=== PATIENT | male | born 1955 | race Caucasian/White ===

== ENCOUNTER 2023-05-13 14:01 | Emergency (ER) | payer SELFPAY ==
[2023-05-13] VITALS (23 sets, daily range): BP systolic 168–250; BP diastolic 87–128; PULSE 59–77; RESP 12–21; O2SAT 94–98
--- NOTE | 2023-05-13 14:15 | RT.EKG_ITS ---
APPROVED REPORT Exam: Resting ECG Reason for Exam: hypertension Patient Location: E HR:60 bpm ECG Measurements Heart Rate 60 AXIS FL 173 P 44 QRSd 94 QRS -7 QT 422 T -22 QTc 423 Conclusion Sinus rhythm 60 normal axis no stemi
[2023-05-13] MEDS: amLODIPine 5 MG TAB PO (14:31)
[2023-05-13] MEDS: hydroCHLOROthiazide 25 MG TAB PO (14:32)
[2023-05-13 14:56] LABS: Abs Immature Grans 0.03 10^3/uL (0.0-0.06); Absolute Basophil Count 0.07 10^3/uL (0.0-0.2); Absolute Eosinophil Count 0.46 10^3/uL (0.0-0.7); Absolute Lymphocyte Count 2.15 10^3/uL (1.2-3.4); Absolute Monocyte Count 0.84 10^3/uL (0.1-0.8); Absolute Neutrophil Count 5.96 10^3/uL (1.2-6.7); Basophils % 0.7; Eosinophils % 4.8; HCT 44.3 % (40.0-50.0); HGB 15.2 g/dL (13.5-17.5); Immature Grans % 0.3; Lymphocytes % 22.6; MCHC 34.3 % (32.0-36.0); MCV 90 fL (80-95); MPV 11.5 fL (8.0-11.0); Monocytes % 8.8; Neutrophils % 62.8; Platelet Count 198 10^3/uL (130-400); RBC 4.91 10^6/uL (4.36-5.78); RDW 13.2 % (11.8-14.1); RDW-SD 43.8 fL; WBC 9.51 10^3/uL (4.4-10.8)
[2023-05-13 15:20] LABS: ALT 6 U/L (16-63); AST 20 U/L (15-37); Albumin 4.1 g/dL (3.4-5.0); Alkaline Phosphatase 103 U/L (46-116); Anion Gap 8.5 mmol/L (3-11); BUN 19 mg/dL (7-18); Bilirubin, Total 0.6 mg/dL (0.2-1.0); CO2 31.5 mmol/L (21.0-32.0); CREATININE 1.1 mg/dL (0.70-1.30); Calcium 8.6 mg/dL (8.5-10.1); Chloride 102 mmol/L (98-107); Estimated GFR 72.67 (mL/min/1.73m2); Glucose 89 mg/dL (74-106); Magnesium 2.2 mg/dL (1.8-2.4); NT-proBNP 735 pg/mL (<300); Potassium 3.4 mmol/L (3.5-5.1); Sodium 142 mmol/L (136-145); Total Protein 8.1 g/dL (6.4-8.2); Troponin I < 50 ng/L (< or =60)
[2023-05-13] MEDS: hydrALAZINE 20 MG/ML VIAL 10 MG IVP (15:54)
[2023-05-13 15:59] LABS: Bilirubin Negative (Negative); Blood Negative (Negative); Clarity Clear (Clear); Glucose Negative (Negative); Ketones Negative (Negative); Leukocyte Esterase Negative (Negative); Nitrite Negative (Negative); Specific Gravity 1.015 (1.005-1.025); Urobilinogen 0.2 mg/dL (Up to 0.2); pH 7.5 (5-8)
--- NOTE | 2023-05-13 16:00 | DI.RAD_ITS ---
Exam(s) XR PORTABLE CHEST AP EXAM: XR PORTABLE CHEST AP CLINICAL HISTORY: htn TECHNIQUE: 2D digital imaging was performed. COMPARISON: No exams were available for comparison FINDINGS: LUNGS: Clear. No pleural abnormality seen. HEART: Enlarged. AORTA: Tortuous. BONES: Unremarkable for age. Soft tissues: Unremarkable. IMPRESSION: No acute findings. DATA REPOSITORY: RADIATION DOSE DELIVERED:
--- NOTE | 2023-05-13 16:00 | W.ED.GENAD ---
Discharge Plan Disposition Patient Disposition: Home Discharge Details Clinical Impression: HTN (hypertension) Primary Care Provider: Cecille Kelsey ED Provider: Walker Mccann Home Meds and New Rx's Prescriptions: New irbesartan-hydrochlorothiazide 300-12.5 mg tablet 1 tab PO DAILY Qty: 30 0RF amlodipine [Norvasc] 5 mg tablet 5 mg PO DAILY Qty: 30 0RF Discontinued irbesartan 300 mg tablet 300 mg PO DAILY Discharge Instructions Instructions: Hypertension (ED) Additional Instructions: Start the new medications provided. Updated prescriptions sent to the pharmacy. You can start these tomorrow. Please continue to keep blood pressure log. Schedule follow-up with your primary care doctor in the next 1 to 2 weeks for reevaluation and follow-up pressure. Return to the emergency department if you develop chest pain, shortness of breath, severe headache. Iniciar los nuevos medicamentos proporcionados. Recetas actualizadas enviadas a la farmacia. Puedes empezar con esto ma?mari. Contin?e manteniendo un registro de la presi?n arterial. Programe un seguimiento con patino m?dico de atenci?n primaria en las pr?ximas 1 a 2 semanas para valerie reevaluaci?n y presi?n de seguimiento. Regrese al departamento de emergencias si presenta dolor en el pecho, dificultad para respirar o dolor de servando intenso. HPI General Date/Time Provider Initiated Documentation: 05/13/23 14:02. Limitations to Documentation: language barrier. Information obtained by: patient. HPI Narrative: 67-year-old gentleman with past medical history of hypertension presents for evaluation of elevated blood pressure. He recently saw PCP and was represcribed his blood pressure medicine. Since that time he has been keeping a blood pressure log. He denies any chest pain or shortness of breath. He reports that he sometimes feels some headache in the back of his head when he lays down. He does not have a headache right now. Denies any chest pain. Patient history obtained using glass mould cleaner line Related Data Home Medications Medication Instructions Recorded Confirmed amlodipine 5 mg tablet (Norvasc) 5 mg PO DAILY #30 tabs 05/13/23 irbesartan 300 1 tab PO DAILY #30 tabs 05/13/23 mg-hydrochlorothiazide 12.5 mg tablet Previous Rx's Medication Instructions Recorded amlodipine 5 mg tablet (Norvasc) 5 mg PO DAILY #30 tabs 05/13/23 irbesartan 300 1 tab PO DAILY #30 tabs 05/13/23 mg-hydrochlorothiazide 12.5 mg tablet Allergies Allergy/AdvReac Type Severity Reaction Status Date / Time No Known Allergies Allergy Verified 05/13/23 14:14 General Stated Complaint: GenMedical CYNDI: 3 Exam Narrative Exam Narrative: Review of Systems: All systems reviewed & are unremarkable except as noted in HPI and below Well-developed, no acute distress NCAT PERRL, normal conjunctiva RRR, no murmur Unlabored respiratory effort, no crackles, clear bilaterally Nondistended abdomen soft nontender Extremities w/o deformity, no cyanosis, no edema No rashes or lesions. no focal neurologic deficits Appropriate mood and affect Course Vital Signs Vital signs: Vital Signs Pulse 64 05/13/23 14:07 Respiratory Rate 18 05/13/23 14:07 Blood Pressure 220/104 H 05/13/23 14:07 Pulse Oximetry 98 05/13/23 14:07 Pulse 68 05/13/23 14:27 Pulse 72 05/13/23 14:30 Respiratory Rate 18 05/13/23 14:32 Respiratory Effort Normal, Non-Labored 05/13/23 14:32 Respiratory Depth Normal 05/13/23 14:32 Respiratory Pattern Normal 05/13/23 14:32 Blood Pressure 221/120 H 05/13/23 14:27 Blood Pressure Mean 149 05/13/23 14:27 Blood Pressure Position Sitting 05/13/23 14:07 Pulse Oximetry 98 05/13/23 14:30 Oxygen Delivery Method Room Air 05/13/23 14:07 Oxygen Flow Rate 0 05/13/23 14:07 Lab/Test Results Lab/Test Results: Laboratory Tests Range/Units 05/13/23 05/13/23 14:50 15:44 WBC (4.4-10.8) 10^3/uL 9.51 RBC (4.36-5.78) 10^6/uL 4.91 Hgb (13.5-17.5) g/dL 15.2 Hct (40.0-50.0) % 44.3 MCV (80-95) fL 90 MCH (27.0-33.0) pg 31.0 MCHC (32.0-36.0) % 34.3 RDW (11.8-14.1) % 13.2 Plt Count (130-400) 10^3/uL 198 MPV (8.0-11.0) fL 11.5 H Immature Gran % 0.3 Neutrophils % 62.8 Lymphocytes % 22.6 Monocytes % 8.8 Eosinophils % 4.8 Basophils % 0.7 Nucleated RBC % (0.0-0.3) % 0.0 Absolute Neutrophils (1.2-6.7) 10^3/uL 5.96 Absolute Lymphocytes (1.2-3.4) 10^3/uL 2.15 Absolute Monocytes (0.1-0.8) 10^3/uL 0.84 H Absolute Eosinophils (0.0-0.7) 10^3/uL 0.46 Absolute Basophils (0.0-0.2) 10^3/uL 0.07 Sodium (136-145) mmol/L 142 Potassium (3.5-5.1) mmol/L 3.4 L Chloride (98-107) mmol/L 102 Carbon Dioxide (21.0-32.0) mmol/L 31.5 Anion Gap (3-11) mmol/L 8.5 BUN (7-18) mg/dL 19 H Creatinine (0.70-1.30) mg/dL 1.1 Est GFR (CKD-EPI 2020) (mL/min/1.73m2) 72.67 Glucose (74-106) mg/dL 89 Calcium (8.5-10.1) mg/dL 8.6 Magnesium (1.8-2.4) mg/dL 2.2 Total Bilirubin (0.2-1.0) mg/dL 0.6 AST (15-37) U/L 20 ALT (16-63) U/L 6 L Alkaline Phosphatase (46-116) U/L 103 Troponin I (< or =60) ng/L < 50 NT-Pro-B Natriuret Pep (<300) pg/mL 735 H Total Protein (6.4-8.2) g/dL 8.1 Albumin (3.4-5.0) g/dL 4.1 Urine Color (Yellow) Yellow Urine Clarity (Clear) Clear Urine pH (5-8) 7.5 Ur Specific [place] (1.005-1.025) 1.015 Urine Protein (Neg-Trace) mg/dL Negative Urine Ketones (Negative) mg/dL Negative Urine Blood (Negative) Negative Urine Nitrite (Negative) Negative Urine Bilirubin (Negative) Negative Urine Urobilinogen (Up to 0.2) mg/dL 0.2 Ur Leukocyte Esterase (Negative) Negative Urine Glucose (Negative) mg/dL Negative Medical Decision Making Emergent evaluation of elevated blood pressure. At this time patient is essentially asymptomatic hypertension. Had an issue with his blood pressure medications had them changed recently then ran out. Has been taking them for the last 2 weeks and keeping a blood pressure log. I reviewed the log and noted that his blood pressures been significantly elevated during this time. He has no specific symptoms concerning for endorgan damage. EKG obtained. No acute ischemic changes. Plan for lab work to evaluate for endorgan damage, will increase medications. Recommend close follow-up with PCP and continued BP log 1600 Lab work reviewed. No leukocytosis or anemia. Renal function normal. Urinalysis without any protein leaking. BNP is slightly elevated. He has no hypoxia or shortness of breath. No signs of volume overload 1630 Patient's blood pressure improved with a dose of IV hydralazine. Discussed plan to change his blood pressure medication and add a new agent. He does have follow-up with PCP next week. Encouraged to continue with blood pressure log. Return precautions advised. Medical Records Medical records reviewed: Yes I reviewed the patient's medical records. Lab Data Lab results reviewed: Yes I reviewed the patient's lab results. Quality:SDOH Health Related Social Needs: No Data to Display PFSH All Active Problems (Updated 05/13/23 @ 16:12 by Walker Mccann MD) Excessive salivation (Acute) Pre-diabetes (Acute) A1C 5.7, with Hx elevated BG per pt-report (no records from [facility]) Back pain (Acute) HTN (hypertension) (Chronic) Social History Smoking/Tobacco Use Status: Former Tobacco Use Quit Date: 02/18/23 Tobacco: How many years used: 50 Quit status: considering quitting Second Hand Exposure: No Smoking risk assessment performed?: Yes Alcohol Intake: current Alcohol Intake frequency: a few times a month Drug use: Never Adopted: No Caregiver/Support person: No Foster care: No Household members: other Details: Daytime with the Niece & her partner; MISSAEL volunteer overnight address Housing: apartment Number of Children: 3 number of grandchildren: 4 Communication Needs: Hard of Hearing, Corrective Lenses and Language Barriers Education Level: elementary school Details: 6 years in [place] current occupation: none Pets and animals: No Sexually active: Yes Do you think of yourself as: straight/heterosexual Current gender identity: male What is your relationship status?: never How often do you talk on the phone with friends or family?: once per week How often do you get together with friends or relatives?: three or more times per week Do you belong to any clubs or organized social groups?: no Panel score (0-1 are the most socially isolated patients): 1 What type of physical activity do you participate in: walking Duration: 15-30 minutes/day Frequency: 1-2 times per week Maylin/Gnosticism: Spiritism Special maylin needs: Yes (Wants body sent to [place] if he dies) Seatbelt use: always Helmet use: No Drive intox or ride w/intox services delivery driver: No
== END 2023-05-13 16:28 | disposition home or self-care (01) ==
PROVIDERS: Emergency Provider Emergency Medicine; PCP Student in an Organized Health Care Education/Training Program
DX: I10 Essential (primary) hypertension (principal); R51.9 Headache, unspecified; Z87.891 Personal history of nicotine dependence
CPT/HCPCS: 80053; 93005; 96374; 99284; 71045; 81003; 83735; 83880; 84484; 85025; 93010; J0360

== ENCOUNTER 2023-05-14 05:20 | Outpatient (CLI) | payer SELFPAY ==
[2023-05-14 08:02] LABS: HGB 15.2 g/dL (13.5-17.5)
[2023-05-14 09:23] LABS: AST 18 U/L (15-37); Albumin 3.8 g/dL (3.4-5.0); Alkaline Phosphatase 90 U/L (46-116); Anion Gap 8.3 mmol/L (3-11); BUN 20 mg/dL (7-18); Bilirubin, Total 0.7 mg/dL (0.2-1.0); CO2 31.7 mmol/L (21.0-32.0); CREATININE 1.2 mg/dL (0.70-1.30); Calcium 8.3 mg/dL (8.5-10.1); Calculated LDL 125 mg/dL (<100); Chloride 102 mmol/L (98-107); Cholesterol 194 mg/dL (<200); Estimated GFR 65.46 (mL/min/1.73m2); Glucose 94 mg/dL (74-106); HDL Cholesterol 52 mg/dL (40-60); Potassium 3.4 mmol/L (3.5-5.1); Sodium 142 mmol/L (136-145); Total Protein 7.5 g/dL (6.4-8.2); Triglyceride 87 mg/dL (<150); Vitamin B12 464 pg/mL (193-986)
[2023-05-14 09:25] LABS: ALT < 6 U/L (16-63)
[2023-05-14 10:06] LABS: Folate > 20.0 ng/mL (8.6-20.0)
[2023-05-15 21:20] LABS: Lab Add On Test DONE
[2023-05-15 22:08] LABS: Magnesium 2.3 mg/dL (1.8-2.4)
== END 2023-05-14 05:21 | disposition home or self-care (01) ==
LOC: LBO 05:20
PROVIDERS: PCP Student in an Organized Health Care Education/Training Program; Visit Provider Student in an Organized Health Care Education/Training Program
DX: I10 Essential (primary) hypertension (principal); E86.0 Dehydration; Z86.2 Personal history of diseases of the blood and blood-forming organs and certain disorders involving the immune mechanism; Z91.89 Other specified personal risk factors, not elsewhere classified; Z13.220 Encounter for screening for lipoid disorders
CPT/HCPCS: 36415; 80053; 80061; 82607; 82746; 83735; 85018

== ENCOUNTER → 2023-05-21 14:21 | Outpatient (CLI) | payer SELFPAY ==
--- NOTE | 2023-05-21 12:45 | DI.RAD_ITS ---
Exam(s) XR CERVICAL SP COMP W FLEX/EXT EXAM: XR CERVICAL SP COMP W FLEX/EXT CLINICAL HISTORY: M54.2 cervicalgia,M62.838 other muscle spasm,neck paineval bony path, Hx Fx. TECHNIQUE: 2D digital imaging was performed. COMPARISON: No exams were available for comparison FINDINGS: Seven images No evidence of fracture, listhesis, nor offset of the spinal laminar line. There is chronic disc space narrowing at C 3-4, C5-6, and C6-7 levels. There is preserved disc heigh t at C2-3 and C4-5 levels. On the oblique views there are small bilateral Luschka joint osteophytes at the lower 2 levels. No c ervical ribs. No cervical scoliosis. Some facet arthropathy noted at multiple levels. No facet mal alignment seen. IMPRESSION: Multilevel degenerative disc disease, as described above. DATA REPOSITORY: RADIATION DOSE DELIVERED:
--- NOTE | 2023-05-21 12:46 | DI.RAD_ITS ---
Exam(s) XR CLAVICLE RT EXAM: XR CLAVICLE RT CLINICAL HISTORY: M54.2 Cericalgia,M62.838 Other muscle spasm,neck pain,eval bony path, Hx Fx. TECHNIQUE: 2D digital imaging was performed. COMPARISON: No exams were available for comparison FINDINGS: Two views. No evidence of fracture of the right clavicle. No osseous lesions. Minimal degenerative changes in the AC joint. No obvious abnormality at the sternoclavicular joint. Bone density normal. IMPRESSION: No significant radiographic findings in the right clavicle. DATA REPOSITORY: RADIATION DOSE DELIVERED:
--- NOTE | 2023-05-21 12:46 | DI.RAD_ITS ---
Exam(s) XR CLAVICLE LT EXAM: XR CLAVICLE LT CLINICAL HISTORY: M54.2 cervicalgia,M62.838 other muscle spasm,neck paineval bony path, Hx Fx. TECHNIQUE: 2D digital imaging was performed. COMPARISON: CR XR CLAVICLE RT from 05/21/2023 FINDINGS: Two views. No evidence of acute fracture. There is, however, evidence of prior fracture in the lateral 3rd of t he left clavicle with significant offset of the AC joint. Also dystrophic calcification in this padmini on. Acromion appears intact. Medial aspect of the clavicle appears unremarkable. IMPRESSION: Sequelae of prior significant injury fracture dislocation of the left AC joint. DATA REPOSITORY: RADIATION DOSE DELIVERED:
--- NOTE | 2023-05-21 12:46 | DI.RAD_ITS ---
Exam(s) XR THORACIC SPINE COMPLETE EXAM: XR THORACIC SPINE COMPLETE CLINICAL HISTORY: M54.2 cervicalgia,M62.838 other muscle spasm,M54.9 dorsalg bony path, Hx Fx. TECHNIQUE: 2D digital imaging was performed. COMPARISON: No exams were available for comparison FINDINGS: 3 views No evidence of fracture nor listhesis nor disc space narrowing. Bone density age-appropriate. No ab normal widening of the paraspinal lines. There is, however, widening of the upper mediastinum evident. Possibly related to enlarged thyroid g land are other significant pathology. IMPRESSION: No acute osseous findings in the thoracic spinal column. Abnormal widening both sides of of the upper mediastinum. This may be related to enlarged thyroid gl and or other significant pathology. DATA REPOSITORY: RADIATION DOSE DELIVERED:
== END ==
PROVIDERS: PCP Student in an Organized Health Care Education/Training Program; Visit Provider Student in an Organized Health Care Education/Training Program
DX: M54.6 Pain in thoracic spine; M50.31 Other cervical disc degeneration, high cervical region; M50.322 Other cervical disc degeneration at C5-C6 level; M50.323 Other cervical disc degeneration at C6-C7 level; R93.89 Abnormal findings on diagnostic imaging of other specified body structures; M54.2 Cervicalgia; M62.838 Other muscle spasm
CPT/HCPCS: 72052; 72072; 73000

== ENCOUNTER 2023-06-27 01:08 | Outpatient (CLI) | payer SELFPAY ==
[2023-06-27 12:55] LABS: AST 18 U/L (15-37); Albumin 3.8 g/dL (3.4-5.0); Alkaline Phosphatase 77 U/L (46-116); Anion Gap 7.1 mmol/L (3-11); BUN 19 mg/dL (7-18); Bilirubin, Total 0.7 mg/dL (0.2-1.0); CO2 32.9 mmol/L (21.0-32.0); CREATININE 1.2 mg/dL (0.70-1.30); Calcium 8.7 mg/dL (8.5-10.1); Calculated LDL 128 mg/dL (<100); Chloride 104 mmol/L (98-107); Cholesterol 211 mg/dL (<200); Estimated GFR 65.06 (mL/min/1.73m2); Glucose 95 mg/dL (74-106); HDL Cholesterol 50 mg/dL (40-60); Potassium 3.1 mmol/L (3.5-5.1); Sodium 144 mmol/L (136-145); TSH (W/Ref FT4) 10.14 uIU/mL (0.36-3.74); Total Protein 7.5 g/dL (6.4-8.2); Triglyceride 166 mg/dL (<150)
[2023-06-27 13:01] LABS: ALT < 6 U/L (16-63)
[2023-06-27 13:07] LABS: Vitamin D 25 Total 32.8 ng/mL (30-100)
[2023-06-27 13:17] LABS: FREE T4 0.89 ng/dL (0.76-1.46)
== END 2023-06-27 01:09 | disposition home or self-care (01) ==
LOC: LBO 01:08
PROVIDERS: PCP Student in an Organized Health Care Education/Training Program; Referring Provider Student in an Organized Health Care Education/Training Program; Visit Provider Student in an Organized Health Care Education/Training Program
DX: I10 Essential (primary) hypertension (principal); Z13.220 Encounter for screening for lipoid disorders; R73.03 Prediabetes; E04.1 Nontoxic single thyroid nodule
CPT/HCPCS: 36415; 80053; 80061; 82306; 84439; 84443; 84550

== ENCOUNTER → 2023-08-09 00:25 | Outpatient (CLI) | payer SELFPAY ==
--- NOTE | 2023-08-09 06:30 | DI.RAD_ITS ---
Exam(s) XR KNEE LT 4V AP,LAT,ALLISON,PAT EXAM: XR KNEE LT 4V AP,LAT,ALLISON,PAT CLINICAL HISTORY: eval joint space, PATELLAR PAIN, DEC ROM, STIFFNESS, M25.662. TECHNIQUE: 2D digital imaging was performed. Three views. COMPARISON: No exams were available for comparison FINDINGS: BONES: No acute fracture is present. No bony destructive lesion is seen. JOINTS: The knee is normally aligned. No joint effusion is seen. Joint spaces are maintained. Mild periarticular spurring throughout. SOFT TISSUE: Normal. IMPRESSION: Mild degenerative changes. DATA REPOSITORY: RADIATION DOSE DELIVERED:
--- NOTE | 2023-08-09 06:30 | DI.RAD_ITS ---
Exam(s) XR KNEE RT 4V AP,LAT,ALLISON,PAT EXAM: XR KNEE RT 4V AP,LAT,ALLISON,PAT CLINICAL HISTORY: Eval joint space, PATELLAR PAIN, DEC ROM, STIFFNESS, M25.661. TECHNIQUE: 2D digital imaging was performed. Three views. COMPARISON: CR XR KNEE LT 4V AP,LAT,ALLISON,PAT from 08/09/2023 FINDINGS: BONES: No acute fracture is present. No bony destructive lesion is seen. JOINTS: Moderate narrowing of the lateral femoral tibial joint space. Periarticular spurring and scl erosis. Medial femoral tibial and patellofemoral joint spaces are maintained show mild periarticular spurring. No joint effusion is seen. SOFT TISSUE: 2 tiny loose body seen posteriorly. IMPRESSION: Degenerative changes, greatest of the lateral femoral tibial joint. DATA REPOSITORY: RADIATION DOSE DELIVERED:
== END ==
PROVIDERS: PCP Student in an Organized Health Care Education/Training Program; Visit Provider Student in an Organized Health Care Education/Training Program
DX: M25.662 Stiffness of left knee, not elsewhere classified; M25.661 Stiffness of right knee, not elsewhere classified
CPT/HCPCS: 73564

== ENCOUNTER → 2023-09-17 02:39 | Outpatient (CLI) | payer SELFPAY ==
--- NOTE | 2023-09-17 07:30 | DI.US_ITS ---
Exam(s) US NEEDLE LOCAL OTHER WO RAD EXAM: US NEEDLE LOCAL OTHER WO RAD CLINICAL HISTORY: Left thyroid nodule meeting criteria,ultrasound guided bx,multinodular. COMPARISON: No exams were available for comparison TECHNIQUE: Ultrasound was provided for Dr. SIGALA for guidance with performing thyroid FNA. FINDINGS: Please see procedure note for details. DATA REPOSITORY:
--- NOTE | 2023-09-17 12:30 | PAPNONF_PTH ---
PATIENT: Ariel Perez LOC: [facility] U#:[id number] AGE/SX: 69/M ROOM: RE09/17/[address]: Jaleel Brown MD : [id number] BED: DIS: SPEC #: [id number] RECD: 09/17/23 17:33 STATUS: JOANIE REQ #: [id number] ASHWINI: 09/17/23 12:[address]: Jaleel Brown DEPT: [facility] Cytology RECD BY: Melissa Marrero ENTERED: 09/17/23 17:34 SP TYPE: MARLENE NG DR: Cecille Kelsey DO Tissues: 1 - BODY FLUID CYTO-FINE NEEDLE ASPIRATE-[facility] Procedures: BODY FLUID CYTO-FINE NEEDLE ASPIRATE-[facility] Comments: [id number] (PATH FNA CONSULT) (REFRIGERATED)
--- NOTE | 2023-09-17 12:46 | W.PROCNOTE ---
Date of service: 09/17/23 Time of Service: 12:46 Procedure Note Date of procedure: 09/17/23 Procedure: Ultrasound-guided FNA, left thyroid nodule, pathology present Procedure Diagnosis: Left thyroid nodule meeting criteria for biopsy Procedure Indications: The patient has a left-sided thyroid nodule meeting criteria for biopsy. Options were explained to the patient regarding further management including second opinion, watchful waiting, or attempted FNA. At the visit in the office, I did describe that this nodule was at the limits of where we could potentially reach. He nonetheless wished to proceed. This was confirmed through the labor relations director he brought with him today. Consent was filled out and signed. The labor relations director explained the consent. Procedure Description: The patient was positioned in a supine position with his neck extended as much as possible, and his head turned slightly to the right. Ultrasound was used to localize the thyroid nodule which lay deep to the clavicle. The patient was prepped and draped in appropriate fashion and 1% lidocaine with 1/100,000 epinephrine was injected in the skin and subcutaneous tissues overlying the nodule. A 25-gauge 1-1/2 inch needle was then carefully introduced into the area of anesthesia and advanced towards the thyroid nodule. Thyroid nodule could just barely be reached with the first pass of the needle, and the needle was introduced approximately 2 to 3 mm into the thyroid nodule and then passed back and forth to collect sample. Under the microscope, colloid was seen but no cells were seen. Further attempts to obtain secondary biopsies were unsuccessful at getting the needle to penetrate into the thyroid nodule. As such, this was eventually abandoned. He was inspected for relative hemostasis after ensuring adequate hemostasis, sterile dressing was applied. The patient was then allowed to sit, stand, and ambulate. His vital signs remained stable. He will remove the bandage tonight and not replace it. He will call with any signs of infection or any concerns. He will avoid any strenuous activity today. He will call if he does not hear from me within 7 days. Because of his language barrier, he has asked that I call Serena Souza to discuss the results at [phone]. I will do this once we have the results.
== END ==
PROVIDERS: PCP Student in an Organized Health Care Education/Training Program; Visit Provider Otolaryngology
DX: E04.2 Nontoxic multinodular goiter (principal)
CPT/HCPCS: 10005; 76942; 88104